=== PATIENT | male | born 2000 | race Caucasian/White ===

== ENCOUNTER 2021-10-02 18:51 | Emergency (ER) | payer OTHER, SELFPAY ==
[2021-10-02 18:58] VITALS: BP 141/44; PULSE 94; RESP 16; TEMP 37.3; O2SAT 100
--- NOTE | 2021-10-02 19:23 | ED.SKABFB ---
HPI - Skin/Abscess/Foreign Bdy General Source: patient and RN notes reviewed Mode of arrival: ambulatory History of Present Illness HPI narrative: This is a 21-year-old mother presents to urgent care with a possible insect bite. Patient notes that he went to sleep last night and woke up with a large bulging reddened area to his wrist with a small blackened area in the center which possibly looks like a bite. He noted that throughout the day he noticed the area became more reddened and enlarged and developed a reddened trail leading from his wrist to his armpit. Upon examination it appears that is along a vein. Call to the emergency department for recommendations. It was recommended that the patient goes to the ED for further evaluation. Patient agrees and will transport himself over to [facility] emergency department. Related Data Allergies Allergy/AdvReac Type Severity Reaction Status Date / Time No Known Allergies Allergy Verified 10/02/21 18:58 Review of Systems Review of Systems: A 14 organ system Review of Systems was performed and pertinent positives included in the HPI, otherwise remaining ROS is negative. [facility] Past Medical History Medical History (Updated 10/06/21 @ 10:32 by Pita Andrade PA-C) Patient denies medical problems Family History Family History (Updated 10/02/21 @ 22:40 by Jessica Cortes RN) Sibling Asthma Social History Social History (Updated 02/14/21 @ 13:32 by India Correia CMA) Smoking status: Never smoker Alcohol intake: never Substance use: never Gender identity (if verbalized by the patient): Male Spiritual care concerns: No Exam Narrative: GENERAL: This is a well-nourished, well-developed patient, in no apparent distress. HEAD: normocephalic, atraumatic. EYES: PERRL. Sclera clear/white. Vision is grossly intact. EARS: External ears normal, auditory canals clear and without drainage, TMs normal without perforation. Hearing grossly intact. NOSE: External nose normal with no obvious nasal discharge, nares without redness, no rhinorrhea. THROAT: Mucous membranes moist, posterior pharynx clear. NECK: Neck supple, non-tender without lymphadenopathy, masses or thyromegaly. CARDIOVASCULAR: Regular rate and rhythm without murmurs, gallops, or rubs. RESPIRATORY: Clear to auscultation. Breath sounds equal bilaterally. No wheezes, rales, or rhonchi. GASTROINTESTINAL: Abdomen soft, non-tender, nondistended. Bowel sounds are active. No hepato-splenomegaly, or palpable masses. No guarding. SKIN: 2 x 2 bulging edematous and erythematous area to the exterior part of his right wrist with a reddened trail from his wrist to his armpit. Reddened area warm to touch. NEURO: awake, alert, and oriented to person, place and time. There were no obvious focal neurologic abnormalities. Steady gait EXTREMITIES: Normal range of motion. No edema. No calf tenderness. Negative Homans sign bilaterally. BACK: Nontender without deformity or crepitance. No flank tenderness. Course Course Emergency Course: Patient accepted at [facility] by Dr. Lorenzana Vital Signs Vital signs: Vital Signs Temperature 99.1 F 10/02/21 18:58 Pulse Rate 94 10/02/21 18:58 Respiratory Rate 16 10/02/21 18:58 Blood Pressure 141/44 H 10/02/21 18:58 Pulse Oximetry 100 10/02/21 18:58 Temperature 99.1 F 10/02/21 18:58 Pulse Rate 94 10/02/21 18:58 Respiratory Rate 16 10/02/21 18:58 Blood Pressure 141/44 H 10/02/21 18:58 Pulse Oximetry 100 10/02/21 18:58 Transfer Transfered to: [facility] Transfer rationale: Rule out sepsis Accepting physician: Dr. Lorenzana MDM - Skin/Abscess/Foreign Bdy Differential Diagnosis Differential diagnosis: Likely abscess of skin or subcutaneous tissue, cellulitis, insect bites and contact dermatitis Discharge Plan Discharge Clinical Impression: Insect bites Patient Disposition: Acute Care Hospital Condition: Stable Prescriptions: No Actio
== END 2021-10-02 19:30 | disposition short-term general hospital (02) ==
PROVIDERS: Emergency Provider Nurse Practitioner; PCP Family Medicine
DX: S60.861A Insect bite (nonvenomous) of right wrist, initial encounter (principal); W57.XXXA Bitten or stung by nonvenomous insect and other nonvenomous arthropods, initial encounter
CPT/HCPCS: 99212; G0463

== ENCOUNTER 2021-10-02 19:41 | Inpatient (IN) | payer OTHER, SELFPAY ==
[2021-10-02 19:53] VITALS: BP 122/75; PULSE 100; RESP 20; TEMP 37; O2SAT 100
--- NOTE | 2021-10-02 20:21 | ED.SKABFB ---
HPI - Skin/Abscess/Foreign Bdy General Chief complaint: Skin/Abscess/Foreign Body Stated complaint: insect bite Time Seen by Provider: 10/02/21 20:02 Source: patient and RN notes reviewed Mode of arrival: ambulatory Limitations: no limitations History of Present Illness HPI narrative: This is a 21 year old male who presents for evaluation right arm infection. Last night he felt like he has bruise to his right wrist. This morning he saw what appeared to be bite lee to his right wrist. Throughout the day he noticed redness around erasto that was streaking up his right arm to his axilla. He denies pain but reports itching at the site. He denies nausea, vomiting, or chills. He states he has been dealing with a cold with low grade temperature of 99 F but does not think that is related to his right arm redness. He is sure that he has suffered bite from Brown recluse spider because he was in his basement yesterday. He reports his tetanus is up to date within past 5 years. Related Data Home Medications Medication Instructions Recorded Confirmed No Home Medications 02/14/21 10/02/21 Allergies Allergy/AdvReac Type Severity Reaction Status Date / Time No Known Allergies Allergy Verified 10/02/21 18:58 Review of Systems Review of Systems: All systems reviewed & are unremarkable except as noted in HPI and below PMFSH Past Medical History Medical History (Updated 10/03/21 @ 04:29 by Elidia Lorenzana MD) Patient denies medical problems Family History Family History (Updated 10/02/21 @ 22:40 by Jessica Cortes RN) Sibling Asthma Social History Social History (Updated 02/14/21 @ 13:32 by India Correia CMA) Smoking status: Never smoker Alcohol intake: never Substance use: never Spiritual care concerns: No Exam Const: General: no acute distress and alert Orientation/consciousness: patient oriented x3 HENMT: Head: normocephalic and atraumatic Eyes: Pupils: Equal, round and reactive pupils present EOM: EOMs intact bilaterally Resp: Effort & Inspection: normal respiratory effort and no retractions Auscultation: clear to auscultation bilaterally Cardio: Rate: regular rate Rhythm: regular rhythm GI: Inspection: non-distended GI Palp: Yes Soft to palpation and No Tenderness to palpation present (GI) Auscultation: normal bowel sounds Neuro: General: patient oriented x3 and moves all extremities Extrem: Right upper extremity: full ROM and normal capillary refill Left upper extremity: full ROM Other: right wrist- 3 x 4 cm area of erythema, induration with lymphangitic red steak to his axilla Psych: Mental Status: mental status grossly normal Affect: normal affect Course Consultations Consultation #1: I discussed case with Dr. aWtson who accepts patient to hospitalist service for lymphangitis. Agrees with continuing cefazolin Date: 10/02/21 Time: 21:20 Vital Signs Vital signs: Vital Signs Temperature 98.6 F 10/02/21 19:53 Pulse Rate 100 10/02/21 19:53 Respiratory Rate 20 10/02/21 19:53 Blood Pressure 122/75 10/02/21 19:53 Pulse Oximetry 100 10/02/21 19:53 Temperature 98.1 F 10/03/21 03:45 Pulse Rate 84 10/03/21 03:45 Respiratory Rate 20 10/03/21 03:45 Blood Pressure 119/60 10/03/21 03:45 Pulse Oximetry 100 10/03/21 03:45 MDM - Skin/Abscess/Foreign Bdy Lab Data Attestation: I reviewed the patient's lab results. Result diagrams: 10/02/21 20:18 10/02/21 20:18 Labs: Lab Results 10/02/21 10/02/21 Range/Units 20:18 20:18 WBC 4.0 L (4.5-10.0) K/mm3 RBC 5.03 (4.6-6.20) M/mm3 Hgb 15.8 (14.0-18.0) g/dL Hct 46.2 (42.0-52.0) % MCV 91.8 (80-100) fl MCH 31.4 (26-34) pg MCHC 34.2 (32-36) g/dl RDW 12.0 (11.5-14.5) % Plt Count 148 L (150-375) k/mm3 MPV 9.5 (7.4-10.4) fl Immature Gran % (Auto) 0.3 (0-0.5) % Neut % (Auto) 36.4 L (45.5-73.1) % Lymph % (Aut
[2021-10-02 20:24] LABS: Basophils Percent Auto 0.3 % (0.2-1.2); Eosinophils Absolute Auto 0.1 K/mm3 (0-0.3); Eosinophils Percent Auto 2.5 % (0-4.4); Hematocrit 46.2 % (42.0-52.0); Hemoglobin 15.8 g/dL (14.0-18.0); Immature Granulocyte Absolute 0.01 K/mm3 (0.00-0.031); Immature Granulocyte Percent A 0.3 % (0-0.5); Lymphocytes Percent Auto 42.7 % (18.3-44.2); Mean Corpuscular HGB Conc 34.2 g/dl (32-36); Mean Corpuscular Hemoglobin 31.4 pg (26-34); Mean Corpuscular Volume 91.8 fl (80-100); Mean Platelet Volume 9.5 fl (7.4-10.4); Monocytes Absolute Auto 0.7 K/mm3 (0.1-0.6); Monocytes Percent Auto 17.8 % (2.6-8.5); Neutrophils Absolute Auto 1.5 K/mm3 (1.3-6.7); Neutrophils Percent Auto 36.4 % (45.5-73.1); Platelet Count Result 148 k/mm3 (150-375); Red Blood Count 5.03 M/mm3 (4.6-6.20)
[2021-10-02 20:38] LABS: Alanine Aminotransferase 14 U/L (4-50); Albumin Level 4.7 g/dL (3.5-5.1); Alkaline Phosphatase 52 U/L (38-126); Anion Gap 8 mmol/L (8-16); Aspartate Amino Transferase 24 U/L (17-59); Bilirubin,Total 1.1 mg/dL (0.2-1.3); Blood Urea Nitrogen 15 mg/dL (9-20); CRP < 0.5 mg/dL (<1.0); Calcium 8.7 mg/dL (8.4-10.2); Carbon Dioxide 29 mmol/L (22-30); Chloride 99 mmol/L (98-107); Estimated CRCL calculation 96 ml/min; Estimated Glomerular Filt Rate > 60; Glucose 97 mg/dL (65-110); Potassium 3.7 mmol/L (3.4-5.0); Sodium 136 mmol/L (137-145)
--- NOTE | 2021-10-02 21:26 | PM.IMHP ---
H&P: HPI History of Present Illness Date/Time: 10/02/21 21:26 Chief Complaint: Spider bite Narrative: This is a 21-year-old male with known significant past medical history patient presents to the emergency room due to right wrist insect bite which has developed a dark center with surrounding erythema and swelling today he noticed that there was tracking up his arm all the way to his armpit patient believes he was a brown recluse spider because he was carrying some boxes from the basement in his house and he has not seen them this was the day before and he when he woke up in the morning he noticed that it had expanded and notice the redness tracking up his arm he went to the urgent care after his mother prom him to do that and at the urgent care he was sent to the emergency room. Patient states that he has been getting over a cold he denies any sore throat, chills, fevers or rigors, body aches or pains, no nausea ,no vomiting, no abdominal pain, no shortness of breath no cough no sputum production. Preliminary workup has been essentially nonrevealing. Patient has been admitted for further management evaluation and treatment. Review of Systems Review of Systems: Brown recluse spider bite, swelling redness of the right wrist and arm Constitutional: Constitutional: Denies chills, Denies fatigue, Denies fever(s), Denies lethargy, Denies malaise, Denies night sweats, Denies poor appetite and Denies weakness Eyes: Eyes: Denies change in vision ENT: Denies dysphagia, Denies vertigo, Denies nasal congestion, Denies nasal discharge, Denies nasal obstruction and Denies odynophagia Cardiovascular: Cardiovascular: Denies diaphoresis, Denies irregular heart rhythm, Denies claudication, Denies lightheadedness, Denies radiating jaw, neck or arm pain, Denies palpitations, Denies dyspnea, Denies dyspnea on exertion and Denies orthopnea Respiratory: Respiratory: Denies cough, Denies excessive phlegm production, Denies dyspnea and Denies wheezing Gastrointestinal: Gastrointestinal: Denies abdominal pain, Denies diarrhea, Denies nausea and Denies vomiting Genitourinary: Genitourinary: Reports no additional male genitourinary complaints and Reports as per HPI Musculoskeletal: Comments: Right wrist Integumentary/Breasts: Skin/Breast: Reports swelling, Reports erythema and Reports skin swelling Comments: Right wrist and arm Neurologic: Denies focal weakness and Denies Sensory deficit (Neuro) Psychiatric: Psychiatric: Reports no additional psychiatric complaints and Reports as per HPI Endocrine: Endocrine: Reports no additional endocrine complaints and Reports as per HPI Hematologic/Lymphatic: Hematologic/Lymphatic: Reports no additional hematologic/lymphatic complaints and Reports as per HPI Allergic/Immunologic: Allergic/Immunologic: Reports no additional allergic/immunologic complaints and Reports as per HPI [facility] Past Medical History Medical History (Updated 10/03/21 @ 00:35 by Roxane Watson MD) Patient denies medical problems Family History Family History (Updated 10/02/21 @ 22:40 by Jessica Cortes RN) Sibling Asthma Social History Social History (Updated 02/14/21 @ 13:32 by India Correia CMA) Smoking status: Never smoker Alcohol intake: never Substance use: never Spiritual care concerns: No Meds Home Medications and Allergies Home Medications Medication Instructions Recorded Confirmed Type No Home Medications 02/14/21 10/02/21 History Allergies Allergy/AdvReac Type Severity Reaction Status Date / Time No Known Allergies Allergy Verified 10/02/21 18:58 Vital Signs Vital Signs - 24 hr 10/02/21 19:53 Temperature 98.6 F Pulse Rate 100 Respiratory Rate 20 Blood Pressure 122/75 Pulse Oximetry 100 Exam Narrative: Patient is in gurney Const: General: cooperative, comfortable, no acute distress, well developed, alert, awake, Physically active, well groomed and other (Well-appeari
[2021-10-02 21:46] VITALS: BP 123/83; PULSE 93; RESP 18; O2SAT 98
[2021-10-02 22:29] VITALS: BMI 25.2
[2021-10-02 22:30] VITALS: BP 125/71; PULSE 91; RESP 20; TEMP 36.9; O2SAT 100
--- NOTE | 2021-10-02 22:38 | ADMGEN ---
This patient, Tom Kenny, was admitted to Medical Room 249-01. Patient/family oriented to hospital policies and general routines including ID bracelet, bed and alarms, visiting hours, pain management, procedures, bathroom and other care routines, personal items, smoking policy, room service/diet, and visiting hours. Information on how to activate the Rapid Response Team has been discussed. Patient/Family are encouraged to report perceived risks to care and to ask questions if they do not understand what they are told or what they should do.
[2021-10-03 03:45] VITALS: BP 119/60; PULSE 84; RESP 20; TEMP 36.7; O2SAT 100
--- NOTE | 2021-10-03 03:49 | PC.NURSE ---
Upon rounding on patient, he states that he collapsed in the bathroom earlier in the shift. When questioning him, he states he never lost consciousness or fell, only lowered himself to ground after voiding and feeling weak. This version of story differs from original explanation given to the tech. He told the tech he fell in the bathroom, stating I passed out in the bathroom. Instructed patient that he now is considered a fall risk and the bed alarm will be activated and a yellow clasp was applied to arm band. Patient voices understanding.
--- NOTE | 2021-10-03 09:11 | PM.IMPN ---
Progress Note: A&P Assessment and Plan (1) Brown recluse spider bite or sting: Code(s): T63.331A - Toxic effect of venom of brown recluse spider, accidental (unintentional), initial encounter Status: Acute Assessment and Plan: Patient is a 21-year-old man with no chronic medical history, who presented to the emergency room as a referral from urgent care for further evaluation of a bite wound to his medial/ulnar distal wrist with surrounding redness, warmth, swelling and redness extending up his arm into his armpit which he noticed two evenings prior to arrival. He had been working in a basement and carrying boxes in concerned he was bitten by a brown recluse spider. He did not see the insect but began having symptoms afterwards. Initial vitals shows blood pressure 122/75, heart rate 100 beats per minute, afebrile, normal oxygenation on room air. Initial labs showed leukopenia of 4.0, slight thrombopenia at 148, elevated monocytes, mild hyponatremia at 136. Creatinine 1.1, slightly dehydrated. Normal LFTs and CRP. The patient was admitted to the hospital with IV cefazolin for treatment of cellulitis and further monitoring of his bite and cellulitis. Patient believes his redness is getting better but the size of his erythema and streaking is still in his armpit. Patient has remained afebrile, non tachycardic. Blood cultures were ordered and pending Will continue monitoring his infection daily and recheck labs in the morning (2) Lymphangitis of upper extremity: Code(s): I89.1 - Lymphangitis Status: Acute Assessment and Plan: See above (3) Syncope: Code(s): R55 - Syncope and collapse Status: Acute Assessment and Plan: The patient had a syncopal episode this morning around 2:00 a.m. while he was standing and urinating in the bathroom. The episode was brief and he did not injure himself. Patient states he feels dehydrated since he has not been eating and drinking much for the last few days with his cold-like symptoms and now his infection. I believe it is due to dehydration and will check orthostatics. His creatinine was high side of normal at 1.1 for an otherwise healthy young man. I will give him 1 L of IV fluids and recheck labs in the morning. Continue monitoring. Time Spent With Patient Time with patient: 25 - 35 minutes Subjective Date/time seen: 10/03/21 09:11 Interval history: Date of service 10/03/2021: Patient states he notices mild improvement to the redness to his right wrist and streaking up his arm. He denies any pain, fever, chills. He states since he has had a cold and has not been eating or drinking much and then with this infection he feels dehydrated. He states around 2:00 a.m. he was standing and urinating and had a syncopal episode. He said he fell on to his buttocks and just leaned back onto the wall. He quickly became conscious and was able to and warm the nurse what happen. He denies any palpitations, chest pain, shortness of breath with the syncopal episode. He denies hitting his head or injuring any part of his body. He has been walking around since without any issues. He had a slight episode of nausea yesterday but it resolved quickly. Denies any vomiting, leg swelling, calf pain, abdominal pain, or any other symptoms at this time. Review of Systems Review of Systems: All systems reviewed & are unremarkable except as noted in HPI and below Exam Narrative: General: 21-year-old man laying on his right side in bed resting. Easily arousable. Appears comfortable. In no acute distress. Skin: See right arm below. No jaundice or cyanosis. Good skin turgor. Neck: Full range of motion. Supple. Respiratory: Lungs are clear to auscultation bilaterally. No bony chest wall tenderness. Cardiovascular:
[2021-10-03] MEDS: LACTATED RINGERS 1,000 ML 100 ML IV CONT (09:49)
[2021-10-03 13:49] VITALS: BP 113/54; PULSE 77; RESP 16; TEMP 37.3; O2SAT 97
[2021-10-03 14:49] VITALS: BP 111/58; PULSE 79
[2021-10-03 14:52] VITALS: BP 93/49; PULSE 92
[2021-10-03] MEDS: LACTATED RINGERS 1,000 ML 125 ML IV CONT (19:36)
[2021-10-03 21:43] VITALS: BP 129/57; PULSE 82; RESP 16; TEMP 37.3; O2SAT 100
[2021-10-04] MEDS: LACTATED RINGERS 1,000 ML 125 ML IV CONT (04:21)
[2021-10-04 05:48] LABS: Basophils Percent Auto 0.5 % (0.2-1.2); Eosinophils Absolute Auto 0.3 K/mm3 (0-0.3); Eosinophils Percent Auto 6.7 % (0-4.4); Hematocrit 40.2 % (42.0-52.0); Hemoglobin 13.6 g/dL (14.0-18.0); Immature Granulocyte Absolute 0.01 K/mm3 (0.00-0.031); Immature Granulocyte Percent A 0.2 % (0-0.5); Immature Platelet Fraction Pct 2.9 % (0.9-11.2); Lymphocytes Absolute Auto 1.46 K/mm3 (0.9-3.2); Mean Corpuscular HGB Conc 33.8 g/dl (32-36); Mean Corpuscular Hemoglobin 30.4 pg (26-34); Mean Corpuscular Volume 89.9 fl (80-100); Mean Platelet Volume 9.7 fl (7.4-10.4); Monocytes Absolute Auto 0.5 K/mm3 (0.1-0.6); Monocytes Percent Auto 13.3 % (2.6-8.5); Neutrophils Absolute Auto 1.8 K/mm3 (1.3-6.7); Neutrophils Percent Auto 43.3 % (45.5-73.1); Platelet Count Result 126 k/mm3 (150-375); Red Blood Count 4.47 M/mm3 (4.6-6.20); Red Cell Distribution Width 11.9 % (11.5-14.5); White Blood Count 4.1 K/mm3 (4.5-10.0)
[2021-10-04 06:00] VITALS: BP 129/51; PULSE 78; RESP 16; TEMP 36.8; O2SAT 100
[2021-10-04 06:00] LABS: Anion Gap 5 mmol/L (8-16); Blood Urea Nitrogen 10 mg/dL (9-20); CRP < 0.5 mg/dL (<1.0); Calcium 8.3 mg/dL (8.4-10.2); Carbon Dioxide 28 mmol/L (22-30); Chloride 102 mmol/L (98-107); Estimated CRCL calculation 116 ml/min; Estimated Glomerular Filt Rate > 60; Glucose 97 mg/dL (65-110); Potassium 3.8 mmol/L (3.4-5.0); Sodium 135 mmol/L (137-145)
[2021-10-04 08:40] VITALS: BP 115/64; BP 121/49; BP 121/58; PULSE 110; PULSE 77; PULSE 90
--- NOTE | 2021-10-04 11:53 | PM.IMPN ---
Progress Note: A&P Assessment and Plan (1) Brown recluse spider bite or sting: Code(s): T63.331A - Toxic effect of venom of brown recluse spider, accidental (unintentional), initial encounter Status: Acute Assessment and Plan: Patient is a 21-year-old man with no chronic medical history, who presented to the emergency room as a referral from urgent care for further evaluation of a bite wound to his medial/ulnar distal wrist with surrounding redness, warmth, swelling and redness extending up his arm into his armpit which he noticed two evenings prior to arrival. He had been working in a basement and carrying boxes in concerned he was bitten by a brown recluse spider. He did not see the insect but began having symptoms afterwards. Initial vitals shows blood pressure 122/75, heart rate 100 beats per minute, afebrile, normal oxygenation on room air. Initial labs showed leukopenia of 4.0, slight thrombopenia at 148, elevated monocytes, mild hyponatremia at 136. Creatinine 1.1, slightly dehydrated. Normal LFTs and CRP. The patient was admitted to the hospital with IV cefazolin for treatment of cellulitis and further monitoring of his bite and cellulitis. Clinically there has been improvement, but still concerned for infection and requiring IV Abx. Patient has remained afebrile, non tachycardic. Blood cultures are negative to date Will continue monitoring his infection daily and recheck labs in the morning (2) Lymphangitis of upper extremity: Code(s): I89.1 - Lymphangitis Status: Acute Assessment and Plan: See above (3) Syncope: Code(s): R55 - Syncope and collapse Status: Acute Assessment and Plan: The patient had a syncopal episode this morning around 2:00 a.m. 10/03/21 while he was standing and urinating in the bathroom. The episode was brief and he did not injure himself. Patient states he feels dehydrated since he has not been eating and drinking much for the last few days with his cold-like symptoms and now his infection. He did have positive orthostatics with a drop from laying to sitting, patient could not stand secondary to lightheadedness. Orthostatics today are normal. Will discontinue IV fluids at this time. Cr improved 0.9. Syncope secondary to vasovagal from orthostatic hypotension Time Spent With Patient Time with patient: 25 - 35 minutes Subjective Date/time seen: 10/04/21 11:53 Interval history: Date of service 10/04/2021: Patient states he notices improvement to the redness and swelling of his distal wrist peer he still has some erythema and warmth noted and streaking to his armpit. He is having some bruising to the erythema streaking. Denies any more syncopal episodes, lightheadedness or dizziness at this time. He denies any palpitations, chest pain, shortness of breath, nausea, vomiting, leg swelling, calf pain, abdominal pain, or any other symptoms at this time. Review of Systems Review of Systems: All systems reviewed & are unremarkable except as noted in HPI and below Exam Narrative: General: 21-year-old man laying on his right side in bed resting. Easily arousable. Appears comfortable. In no acute distress. Skin: Right arm with Small 0.25 cm darkened pustule without any drainage with surrounding 5cm in diameter warmth, erythema and edema, with good improvement. With mild- moderate streaking erythema up the medial aspect of his right arm to his mid axilla. No palpated axillary LAD. No jaundice or cyanosis. Good skin turgor. Neck: Full range of motion. Supple. Respiratory: Lungs are clear to auscultation bilaterally. No bony chest wall tenderness. Cardiovascular: The heart has a regular rate and rhythm without murmur. No carotid bruits. Lower extremities: No lower extremity edema. Distal pulses are
[2021-10-04 14:05] VITALS: BP 127/55; PULSE 85; RESP 22; TEMP 37.9; O2SAT 100
[2021-10-04] MEDS: ACETAMINOPHEN 325 MG TABLET 650 MG PO (14:42)
[2021-10-04 15:42] VITALS: TEMP 36.9
[2021-10-04 18:00] VITALS: TEMP 36.9
[2021-10-04 21:28] VITALS: BP 110/42; PULSE 85; RESP 16; TEMP 37.6; O2SAT 98
[2021-10-05 05:41] VITALS: BP 132/52; PULSE 86; RESP 16; TEMP 37.2; O2SAT 99
[2021-10-05 06:14] LABS: Immature Platelet Fraction Pct 4.4 % (0.9-11.2); Mean Corpuscular HGB Conc 34.1 g/dl (32-36); Mean Corpuscular Hemoglobin 31.6 pg (26-34); Mean Corpuscular Volume 92.8 fl (80-100); Mean Platelet Volume 10.2 fl (7.4-10.4); Platelet Count Result 131 k/mm3 (150-375); Red Blood Count 4.74 M/mm3 (4.6-6.20); Red Cell Distribution Width 11.7 % (11.5-14.5)
[2021-10-05 11:39] LABS: Influenza Control Positive
[2021-10-05 12:59] LABS: Monoscreen Negative (Negative); Negative Monotest Control Negative (Negative); Positive Monotest Control Positive (Positive)
--- NOTE | 2021-10-05 13:53 | PM.IMPN ---
Progress Note: A&P Assessment and Plan (1) Brown recluse spider bite or sting: Code(s): T63.331A - Toxic effect of venom of brown recluse spider, accidental (unintentional), initial encounter Status: Acute Assessment and Plan: Patient is a 21-year-old man with no chronic medical history, who presented to the emergency room as a referral from urgent care for further evaluation of a bite wound to his medial/ulnar distal wrist with surrounding redness, warmth, swelling and redness extending up his arm into his armpit which he noticed two evenings prior to arrival. He had been working in a basement and carrying boxes in concerned he was bitten by a brown recluse spider. He did not see the insect but began having symptoms afterwards. Initial vitals shows blood pressure 122/75, heart rate 100 beats per minute, afebrile, normal oxygenation on room air. Initial labs showed leukopenia of 4.0, slight thrombopenia at 148, elevated monocytes, mild hyponatremia at 136. Creatinine 1.1, slightly dehydrated. Normal LFTs and CRP. The patient was admitted to the hospital with IV cefazolin for treatment of cellulitis and further monitoring of his bite and cellulitis. Clinically there has been improvement, but still concerned for infection and requiring IV Abx. Patient was febrile yesterday at 1400 at 100.3F. Will continue monitoring overnight with more abx to keep afebrile for 48 hours and ensure cellulitis is improving tomorrow Blood cultures are negative to date Will continue monitoring his infection daily and recheck labs in the morning (2) Lymphangitis of upper extremity: Code(s): I89.1 - Lymphangitis Status: Acute Assessment and Plan: See above (3) Syncope: Code(s): R55 - Syncope and collapse Status: Acute Assessment and Plan: The patient had a syncopal episode this morning around 2:00 a.m. 10/03/21 while he was standing and urinating in the bathroom. The episode was brief and he did not injure himself. Patient states he feels dehydrated since he has not been eating and drinking much for the last few days with his cold-like symptoms and now his infection. He did have positive orthostatics with a drop from laying to sitting, patient could not stand secondary to lightheadedness. Orthostatics today are normal. Will discontinue IV fluids at this time. Cr improved 0.9. Syncope secondary to vasovagal from orthostatic hypotension (4) Leukopenia: Code(s): D72.819 - Decreased white blood cell count, unspecified Status: Acute Assessment and Plan: Leukopenic since admission, believed from viral infection. Negative fluid swab, and mono test. CRP was normal, do not believe the patient has COVID . Time Spent With Patient Time with patient: 25 - 35 minutes Subjective Date/time seen: 10/05/21 13:53 Interval history: Date of service 10/05/2021: Patient states he notices improvement to the redness and swelling of his distal wrist and streaking. Still with erythema and warmth. He is having some bruising to the erythema streaking. Denies any more syncopal episodes, lightheadedness or dizziness at this time. He denies any palpitations, chest pain, shortness of breath, nausea, vomiting, leg swelling, calf pain, abdominal pain, or any other symptoms at this time. Review of Systems Review of Systems: All systems reviewed & are unremarkable except as noted in HPI and below Exam Narrative: General: 21-year-old man laying on his right side in bed resting. Easily arousable. Appears comfortable. In no acute distress. Skin: Right arm with Small 0.25 cm darkened pustule without any drainage with surrounding 5cm in diameter warmth, erythema and edema, with good improvement. With mild- moderate streaking erythema up the medial aspect of his right arm
[2021-10-05 14:00] VITALS: BP 120/59; PULSE 82; RESP 18; TEMP 36.7; O2SAT 95
[2021-10-05 19:27] VITALS: BP 124/60; PULSE 79; RESP 18; TEMP 37.4; O2SAT 99
[2021-10-06 03:30] VITALS: BP 101/54; PULSE 77; RESP 17; TEMP 36.9; O2SAT 97
--- NOTE | 2021-10-06 09:00 | PM.DS ---
DS: Admitting Diagnosis Discharge Date 10/06/21 Admitting Diagnosis Spider bit and spreading redness DS: Discharge Diagnosis Discharge Diagnosis (1) Brown recluse spider bite or sting: Code(s): T63.331A - Toxic effect of venom of brown recluse spider, accidental (unintentional), initial encounter Status: Acute Assessment and Plan: Patient is a 21-year-old man with no chronic medical history, who presented to the emergency room as a referral from urgent care for further evaluation of a bite wound to his medial/ulnar distal wrist with surrounding redness, warmth, swelling and redness extending up his arm into his armpit which he noticed two evenings prior to arrival. He had been working in a basement and carrying boxes in concerned he was bitten by a brown recluse spider. He did not see the insect but began having symptoms afterwards. Initial vitals shows blood pressure 122/75, heart rate 100 beats per minute, afebrile, normal oxygenation on room air. Initial labs showed leukopenia of 4.0, slight thrombopenia at 148, elevated monocytes, mild hyponatremia at 136. Creatinine 1.1, slightly dehydrated. Normal LFTs and CRP. The patient was admitted to the hospital with IV cefazolin for treatment of cellulitis and further monitoring of his bite and cellulitis. He is feeling much better at this time. Afebrile for over 24 hours. Erythema, swelling to right arm has improved immensely. Blood cultures are negative to date He is stable at this time to be discharged on Keflex q.i.d. for a total of 10 days of treatment. Will give probiotic. Instructed to follow-up with his PCP in 1 week for further evaluation monitoring Return to ER warnings given. Patient understands and agrees the plan all questions answered. (2) Lymphangitis of upper extremity: Code(s): I89.1 - Lymphangitis Status: Acute Assessment and Plan: See above (3) Syncope: Code(s): R55 - Syncope and collapse Status: Acute Assessment and Plan: The patient had a syncopal episode after arrival to the floor around 2:00 a.m. 10/03/21 while he was standing and urinating in the bathroom. The episode was brief and he did not injure himself. Patient states he feels dehydrated since he has not been eating and drinking much for the last few days with his cold-like symptoms and now his infection. He did have positive orthostatics with a drop from laying to sitting, patient could not stand secondary to lightheadedness. Orthostatics today are normal. Will discontinue IV fluids at this time. Cr improved 0.9. Syncope secondary to vasovagal from orthostatic hypotension Patient is getting around without any more lightheadedness, dizziness. Vitals are otherwise stable, stable blood pressure. (4) Leukopenia: Code(s): D72.819 - Decreased white blood cell count, unspecified Status: Acute Assessment and Plan: Leukopenic since admission, believed from viral infection. Negative fluid swab, and mono test. CRP was normal, do not believe the patient has COVID. (5) Thrombopenia: Code(s): D69.6 - Thrombocytopenia, unspecified Status: Acute Assessment and Plan: Patient had mild thrombopenia during hospitalization. Could be secondary to underlying infection versus viral infection. That is why check a mono swab which can cause irritation to the liver and spleen. [place] was negative. I told the patient of the thrombopenia and plans for repeat labs in 1 week and follow-up with his doctor for further evaluation monitoring. He understands agrees the plan all questions answered. DS: Summary Hospital Course Hospital Course: See above Status at Discharge Cognitive/behavioral status at discharge: Stable, improved. Time Spent
[2021-10-06 10:51] VITALS: BP 111/61; PULSE 79; RESP 16; TEMP 36.6; O2SAT 98
== END 2021-10-06 12:08 | disposition home or self-care (01) | DRG 918 ==
LOC: ANHED 21:07 → ANH2MED 21:35
PROVIDERS: Physician Assistant; Admitting Provider Internal Medicine; Emergency Provider General Practice; PCP Orthopaedic Surgery Hand Surgery; Visit Provider Family Medicine
DX: T63.331A Toxic effect of venom of brown recluse spider, accidental (unintentional), initial encounter (principal); D69.6 Thrombocytopenia, unspecified; I89.1 Lymphangitis; Y93.E9 Activity, other interior property and clothing maintenance; I95.1 Orthostatic hypotension; D72.819 Decreased white blood cell count, unspecified; B34.9 Viral infection, unspecified; Z28.21 Immunization not carried out because of patient refusal
CPT/HCPCS: 36415; 80048; 80053; 85025; 85027; 85055; 86140; 86308; 87040; 87076; 87804; 96361; 96365; 96366; 99212; 99285; A9270; G0378; G0463; J0690; J7120

== ENCOUNTER 2025-05-17 17:34 | Emergency (ER) | payer SELFPAY ==
[2025-05-17 17:46] VITALS: BP 130/72; PULSE 95; RESP 16; TEMP 37.4; O2SAT 100
--- NOTE | 2025-05-17 17:50 | ED_ITS ---
HPI - URI/Sore Throat General Chief Complaint: Upper Respiratory Infection Stated Complaint: SORE THROAT Time Seen by Provider: 05/17/25 17:50 Source: patient Mode of arrival: ambulatory Limitations: no limitations History of Present Illness HPI Narrative: 24-year-old male presents with complaint of sore throat, headache, fatigue for 3 days. Reports low-grade fever. Taking Tylenol to treat pain. Denies nausea vomiting. All systems reviewed and negative except as noted above. Related Data Allergies Allergy/AdvReac Type Severity Reaction Status Date / Time No Known Allergies Allergy Verified 05/17/25 17:45 Review of Systems Review of Systems: CONSTITUTIONAL: Denies fever, chills, or sweats. EYES: Denies visual changes, redness, or discharge. ENT: Denies rhinorrhea, congestion. Reports sore throat. Denies otalgia. CARDIOVASCULAR: Denies chest pain, palpitations, or edema. RESPIRATORY: Denies cough or dyspnea. GASTROINTESTINAL: Denies abdominal pain, nausea, vomiting, or diarrhea. GENITOURINARY: Denies dysuria or hematuria. SKIN: Denies rash or itching. MUSCULOSKELETAL: Denies back pain, joint pain, or myalgia. NEUROLOGIC: Reports headache. Denies numbness, or weakness. PSYCHIATRIC: Denies anxiety or depression. All other systems reviewed are negative, except as documented in HPI. [facility] Past Medical History Medical History (Updated 05/17/25 @ 17:54 by Carmen Zamorano NP) Patient denies medical problems Family History Family History (Updated 10/02/21 @ 22:40 by Jessica Cortes RN) Sibling Asthma Social History Social History (Updated 02/14/21 @ 13:32 by India Correia CMA) Smoking status: Never smoker Alcohol intake: never Substance use: never Gender identity (if verbalized by the patient): Male Spiritual care concerns: No Comments At time of signature, agree with nursing past medical, surgical, social and family history. There is no relevant family history pertinent to the presenting complaint. Exam Narrative: GENERAL: This is a well-nourished, well-developed patient, in no apparent distress. HEAD: normocephalic, atraumatic. EYES: PERRL. Sclera clear/white. Vision is grossly intact. EARS: External ears normal, auditory canals clear and without drainage, TMs normal without perforation. Hearing grossly intact. NOSE: External nose normal with no obvious nasal discharge, nares without redness, no rhinorrhea. THROAT: Mucous membranes moist, erythematous with swelling. Exudates noted. Tonsils 1+ bilaterally. NECK: Neck supple, non-tender without lymphadenopathy, masses or thyromegaly. CARDIOVASCULAR: Regular rate and rhythm without murmurs, gallops, or rubs. RESPIRATORY: Clear to auscultation. Breath sounds equal bilaterally. No wheezes, rales, or rhonchi. SKIN: warm, Dry, intact with no suspicious lesions or rash, good texture and turgor. NEURO: awake, alert, and oriented to person, place and time. There were no obvious focal neurologic abnormalities. EXTREMITIES: No joint tenderness, effusion, or edema noted. Course Course Level of Care: Express Care Visit Vital Signs Vital signs: Vital Signs Temperature 37.4 C 05/17/25 17:46 Pulse Rate 95 05/17/25 17:46 Respiratory Rate 16 05/17/25 17:46 Blood Pressure 130/72 05/17/25 17:46 Pulse Oximetry 100 05/17/25 17:46 Temperature 37.4 C 05/17/25 17:46 Pulse Rate 95 05/17/25 17:46 Respiratory Rate 16 05/17/25 17:46 Blood Pressure 130/72 05/17/25 17:46 Pulse Oximetry 100 05/17/25 17:46 Reviewed MDM - URI/Sore Throat MDM Narrative Medical decision making narrative: Positive rapid strep. Will treat with amoxicillin. Patient is alert, nontoxic. Differential Diagnosis Differential diagnosis: Likely upper respiratory infection, sinusitis, viral infection and pharyngitis Discharge Plan Discharge Clinical Impression: Strep throat Patient Disposition: Home Condition: Stable Instructions: Antibiotic Form, Strep Throat (ED) Additional Instructions: Your strep test was positive today. Take antibiotic as prescribed until gone. Change toothbrush after taking antibiotic for 24 hours. Take ibuprofen or Tylenol every 6-8 hours as needed for pain and fever. Drink plenty of fluids and rest. See your doctor if symptoms are not improving. Patient Language: Turkish Prescriptions: New amoxicillin 500 mg capsule 500 mg PO Q12H 10 Days Qty: 20 0RF Follow-up/Referrals: PHYSICIAN,PORTAL DEVELOPER [Primary Care Provider] - Stand Alone Forms: Work/School Release IP Time of Disposition: 17:54
[2025-05-17 17:52] LABS: EDSTREPNEGPOS1 Positive (Negative)
== END 2025-05-17 17:53 | disposition home or self-care (01) ==
PROVIDERS: Emergency Provider Nurse Practitioner Family
DX: J02.0 Streptococcal pharyngitis (principal)
CPT/HCPCS: 87880; 99213; G0463